=== PATIENT | female | born 1970 | race Two or more races ===

== ENCOUNTER 2020-12-24 10:40 | Emergency (ER) | payer OTHER ==
[~2020-12-24] VITALS: Ht 160 cm; Wt 68.0 kg
== END 2020-12-24 18:12 | disposition home or self-care (01) ==
LOC: ER 10:40
DX: N93.8 Other specified abnormal uterine and vaginal bleeding (principal); D25.9 Leiomyoma of uterus, unspecified; Z03.818 Encounter for observation for suspected exposure to other biological agents ruled out